=== PATIENT | male | born 1955 | race Caucasian/White ===

== ENCOUNTER → 2017-11-12 | Outpatient (CLI) | payer OTHER ==
--- NOTE | ~2017-11-12 | EEG ---
[facility] [address] [place] [address] ELECTROENCEPHALOGRAM Name: GLENRay Room #: REG [facility].#: [id number] Admission: 11/12/17 Attend Phys: Wally Anguiano MD Discharge: Date of : 53 Report #: [id number] THIS REPORT FOR: //name// CC: Wally Anguiano DATE OF SERVICE: 11/12/2017 This patient is being evaluated for transient confusion. EEG was done by placing the electrode by standard 10-20 system of electrode placement. Both referential and sequential montages were used for recording. Background activity in this patient's EEG is about 11 Hz and 40 microvolt. It is a symmetrical activity. This patient went to sleep that is associated with bilaterally symmetrical sleep spindle and vertex sharp waves. Throughout the record, no active epileptiform activity was noticed. IMPRESSION: This patient's EEG is within normal limits. Thank you very much for this referral. <ELECTRONICALLY SIGNED> By: Tong Jara MD 11/14/17 1201 1515 1619 Tong Jara MD /nt
== END ==
LOC: CV 12:52 → NEURO 12:52 → NUTRICON 15:43 → NEURO 15:45 → NUTRICON 15:46 → EDSTATUS 15:48 → NEURO 15:48
DX: C71.9 Malignant neoplasm of brain, unspecified (principal); R40.4 Transient alteration of awareness; R51 Headache

== ENCOUNTER → 2017-11-14 | Outpatient (CLI) | payer OTHER | LOC: MRI 08:54 | DX: G93.9 Disorder of brain, unspecified (principal); C71.9 Malignant neoplasm of brain, unspecified ==

== ENCOUNTER → 2019-02-12 | Day surgery (SDC) | payer OTHER ==
[~2019-02-12] VITALS: Ht 180.3 cm; Wt 75.7 kg
[~2019-02-12] MED LIST: KEPPRA XR500 MG PO; NORCO 5-325 TA1 EAC1 PO; NORVASC5 MG PO; PRINIVIL20 M1 PO
[2019-02-12 12:00] VITALS: BP 143/95
[2019-02-12 15:00] VITALS: BP 143/95
--- NOTE | 2019-02-13 12:24 | EKG ---
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
--- NOTE | 2019-02-24 12:03 | O ---
[facility] [address] [place] [address] OPERATIVE REPORT Name: Ray CRAROLL Room #: REG [facility]#: [id number] Admission: 02/12/19 Attend Phys: Anirudh Wang MD Discharge: Date of : 53 Report #: [id number] THIS REPORT FOR: //name// CC: NICHOLAS Wang DATE OF SERVICE: 02/12/2019 PREOPERATIVE DIAGNOSIS: Symptomatic left inguinal hernia. POSTOPERATIVE DIAGNOSIS: Left direct inguinal hernia. PROCEDURE PERFORMED: Laparoscopic repair of left direct inguinal hernia with mesh. SURGEON: Anirudh Wang MD ANESTHESIA: General anesthesia. COMPLICATIONS: None. ESTIMATED BLOOD LOSS: 5 mL. PROCEDURE NOTE: With the patient under general anesthesia, Uribe catheter was placed. The left lower quadrant groin area was prepped and draped in sterile fashion. The patient did receive preoperative IV antibiotics. The patient was placed in a slightly Trendelenburg position with the left side slightly tilted up. A 0.25% Marcaine was used to anesthetize the skin. Transverse incision was made adjacent to the umbilicus. The anterior fascia was identified. Anterior fascia was incised transversely. The muscle was spread along the length of its fiber. The space between the muscle and the posterior fascia, posterior rectus sheath was bluntly dissected. A balloon trocar was placed. The balloon was inflated. Under visualization, a 5 mm trocar was placed into the properitoneal space. Dissection was then carried out freeing the rest of properitoneal space. The patient had obvious direct defect. The fat that is adhesed to the thinned out wall. This was taken down. Once this was taken down, the defect was well exposed. The pubic bone was isolated and freed up. Lateral dissection was then carried out identifying the inferior epigastric artery and vein. Cord structures identified laterally. The peritoneal reflection was identified on the cord. There was no indirect sac. The peritoneum was further freed from the cord. A small cord lipoma was also identified and reduced. A left large size 3DMax lightweight mesh was then placed in the properitoneal space. This was seated well covering the direct defect well, also covering the internal ring. Mesh was tacked superiorly laterally to the wall with SorbaFix inferomedially to Drew's ligament tacking the mesh below the fascia defect superomedially. The [address] [address] OPERATIVE REPORT Name: Ray CARROLL Room #: REG [facility].R.#: [id number] Admission: 02/12/19 Attend Phys: Anirudh Wang MD Discharge: Date of : 53 Report #: [id number] mesh was tacked to the rectus muscle. Mesh seated well. No bleeding was identified. CO2 was evacuated. Trocars were removed. The anterior fascial defect was closed with [id number] 0 Vicryl. Skin was irrigated. Skin was closed with 5-0 PDS. Steri-Strip, Band-Aids applied. The patient tolerated the procedure well. <ELECTRONICALLY SIGNED> By: Anirudh Wang MD 02/24/19 1203 2209 2233 Anirudh Wang MD /nt
== END | disposition home or self-care (01) ==
LOC: OR 09:08
DX: K40.90 Unilateral inguinal hernia, without obstruction or gangrene, not specified as recurrent (principal); D17.6 Benign lipomatous neoplasm of spermatic cord; I10 Essential (primary) hypertension; F17.210 Nicotine dependence, cigarettes, uncomplicated; Z86.19 Personal history of other infectious and parasitic diseases; Z79.899 Other long term (current) drug therapy; Z98.890 Other specified postprocedural states
CPT/HCPCS: 50010; 50101; 50249; 50411; 50455; 50507; 50555; 50848; 53065; 53307; 56525; 56526; 62110; 62900; 70005